=== PATIENT | male | born 1990 | race Two or more races ===

== ENCOUNTER → 2018-07-27 | Outpatient (CLI) | payer OTHER ==
[~2018-07-27] MED LIST: NONE PER PT
== END | disposition home or self-care (01) ==
LOC: STAR 15:23 → MERGE 15:30
PROVIDERS: ATTEND Surgery
DX: Z02.9 Encounter for administrative examinations, unspecified (principal)

== ENCOUNTER 2018-08-02 09:17 | Day surgery (SDC) | payer OTHER ==
[~2018-08-02] VITALS: Ht 182.9 cm; Wt 104.7 kg
[~2018-08-02 09:17] MED LIST changes: +BUPIVACAINE/PF-EPI 0.5% 1:200K ONE
[2018-08-02] MEDS ORDERED: LACTATED RINGERS 1,000 ML IV SCH (09:43)
[2018-08-02] MEDS ORDERED: OXYcodone IR 5MG TABLET PO ONE (10:00)
[2018-08-02] MEDS ORDERED: ONDANSETRON ODT 8 MG PO ONE (10:00)
[2018-08-02] MEDS ORDERED: GABAPENTIN 300 MG CAPSULE PO ONE (10:00)
[2018-08-02] MEDS ORDERED: ACETAMINOPHEN 500 MG TABLET PO ONE (10:00)
[2018-08-02] MEDS ORDERED: MIDAZOLAM 1 MG/ML, 2ML ONE (10:56)
[2018-08-02] MEDS ORDERED: FENTANYL PF 250 MCG/5ML ONE (10:57)
[2018-08-02] MEDS ORDERED: CEFAZOLIN 1,000 MG ONE (11:10)
[2018-08-02] MEDS ORDERED: SUCCINYLCHOLINE 20 MG/ML, 10ML ONE (11:10)
[2018-08-02] MEDS ORDERED: ROCURONIUM 10 MG/ML,10ML ONE (11:10)
[2018-08-02] MEDS ORDERED: DEXAMETHASONE 4 MG/ML, 1ML ONE ×2 (11:10→11:50)
[2018-08-02] MEDS ORDERED: KETOROLAC 30 MG/1 ML ONE (11:10)
[2018-08-02] MEDS ORDERED: PROPOFOL 10 MG/ML, 20ML ONE (11:27)
[2018-08-02] MEDS ORDERED: PROMETHAZINE 25 MG SUPP PR PRN (11:30)
[2018-08-02] MEDS ORDERED: ONDANSETRON ODT 8 MG PO PRN (11:30)
[2018-08-02] MEDS ORDERED: OXYcodone 5 MG/5 ML ORAL.SOL UDC PO PRN (11:30)
[2018-08-02] MEDS ORDERED: MIDAZOLAM 1 MG/ML, 2ML IV PRN (11:30)
[2018-08-02] MEDS ORDERED: EPHEDRINE 50 MG/ML, 1ML IM PRN (11:30)
[2018-08-02] MEDS ORDERED: LABETALOL 5MG/ML, 20ML IV PRN (11:30)
[2018-08-02] MEDS ORDERED: MORPHINE SULFATE 4 MG/ML, 1ML IVPush PRN (11:30)
[2018-08-02] MEDS ORDERED: ONDANSETRON 2MG/ML, 2ML IV PRN (11:30)
[2018-08-02] MEDS ORDERED: PROMETHAZINE 12.5 MG SUPP PR PRN (11:30)
[2018-08-02] MEDS ORDERED: DIPHENHYDRAMINE 50 MG/ML, 1ML IVPush PRN (11:30)
[2018-08-02] MEDS ORDERED: EPHEDRINE 50 MG/ML, 1ML IVPush PRN (11:30)
[2018-08-02] MEDS ORDERED: PROMETHAZINE 25 MG/ML, 1ML IV PRN (11:30)
[2018-08-02] MEDS ORDERED: MEPERIDINE/PF 25MG/0.5ML IVPush PRN (11:30)
[2018-08-02] MEDS ORDERED: ONDANSETRON 2MG/ML, 2ML ONE (11:50)
[2018-08-02] MEDS ORDERED: FENTANYL PF 100 MCG/2ML ONE (12:24)
[2018-08-02] MEDS: FENTANYL PF 100 MCG/2ML IV PRN ×2 (12:25→12:32)
[2018-08-02] MEDS ORDERED: HYDROcodone/APAP 7.5-325MG/15ML UDC ONE (14:20)
== END 2018-08-02 18:15 | disposition home or self-care (01) ==
LOC: OUT 09:17 → MERGE 12:00 → OUT 18:15
PROVIDERS: ATTEND Surgery
DX: K42.9 Umbilical hernia without obstruction or gangrene (principal)
CPT/HCPCS: 49585; J0330; J0690; J1100; J1885; J2250; J2405; J2704; J3010; J7120; Q0162

== ENCOUNTER 2019-02-02 17:24 | Emergency (ER) | payer OTHER ==
[~2019-02-02] VITALS: Ht 182.9 cm; Wt 109.3 kg
[~2019-02-02 17:24] MED LIST changes: -BUPIVACAINE/PF-EPI 0.5% 1:200K ONE
[2019-02-02 18:23] LABS: RAPID INFLUENZA A Negative (Negative); RAPID INFLUENZA B Negative (Negative)
[2019-02-02 18:26] LABS: ALBUMIN 4.6 g/dL (3.4-5.0); ANION GAP 6 mmol/L (5-15); CALCIUM 9.2 mg/dL (8.5-10.1); CHLORIDE 102 mmol/L (98-107); CREATININE 1.31 mg/dL (0.7-1.3)
[2019-02-02 18:58] LABS: BASOPHILS % (AUTO) 0 % (0-1); EOSINOPHILS % (AUTO) 1 % (1-7); LYMPHOCYTES % (AUTO) 9 % (22-44); MD MORPH REVIEW ONLY; MEAN CORPUSCULAR HEMOGLOBIN 32.1 pg (27.5-34.5); MEAN CORPUSCULAR HGB CONC 34.6 g/dL (33.2-36.2); MEAN CORPUSCULAR VOLUME 92.6 fL (81-97); MEAN PLATELET VOLUME 11.9 fL (7.4-10.4); MONOCYTES % (AUTO) 6 % (2-9); NEUTROPHILS # (AUTO) 8.83 x10^3/uL (1.8-6.8); NEUTROPHILS % (AUTO) 85 % (42-75); PLATELET COUNT 184 x10^3/uL (130-400); RED BLOOD COUNT 5.67 x10^6/uL (4.38-5.82); RED CELL DISTRIBUTION WIDTH 12.1 % (9.4-14.8)
[2019-02-02 18:59] LABS: <PLATELET ESTIMATE> ADEQUATE; <RBC MORPHOLOGY> NORMAL; LARGE PLATELETS 1+
[2019-02-02] MEDS ORDERED: SODIUM CHLORIDE FLUSH 10ML SYR IVF ONE (20:00)
[2019-02-02] MEDS ORDERED: ACETAMINOPHEN 500 MG TABLET PO ONE (20:00)
[2019-02-02] MEDS ORDERED: SODIUM CHLORIDE 0.9% 1,000ML IVBOLUS ONE (20:00)
[2019-02-02 20:09] LABS: TROPONIN I < 0.015 ng/mL (0.000-0.045)
[2019-02-02] MEDS ORDERED: ACETAMINOPHEN 500 MG TABLET ONE (20:52)
[2019-02-02 21:03] VITALS: BP 108/75
== END 2019-02-02 21:06 | disposition home or self-care (01) ==
LOC: ED 21:00
DX: N28.9 Disorder of kidney and ureter, unspecified (principal); R07.89 Other chest pain; B34.9 Viral infection, unspecified; R19.7 Diarrhea, unspecified
CPT/HCPCS: 36415; 71046; 80048; 82040; 84484; 85025; 85379; 87400; 93005; 96360; 99284; J7030